=== PATIENT | female | born 1950 | race Caucasian/White ===

== ENCOUNTER 2018-06-04 14:57 | Emergency (ER) | payer OTHER ==
[~2018-06-04] VITALS: Ht 157.5 cm; Wt 82.6 kg
--- NOTE | 2018-06-04 16:11 | ED GI/GU/ABDOMINAL COMPLAINT ---
See Addendum History of Present Illness General Chief Complaint: General Adult Stated Complaint: BIBA N/V Source: patient Exam Limitations: no limitations Vital Signs & Intake/Output Vital Signs & Intake/Output Vital Signs Date Time Temp Pulse Resp B/P B/P Pulse O2 O2 Flow FiO2 Mean Ox Delivery Rate 06/04 1504 97 Room Air 06/04 1501 98.2 66 18 150/66 95 Room Air 06/04 1501 64 16 150/77 94 Room Air Allergies Coded Allergies: Iodinated Contrast- Oral and IV Dye (Severe, "MY EYES GET PINK" 06/04/18) Sulfa (Sulfonamide Antibiotics) (Severe, N/A 06/04/18) metformin (Severe, N/V 06/04/18) Triage Note: 68 Y/O FEMALE BIBA FROM HOME FOR EVAL OF N/V/D X 2 WEEKS. PER EMS AND PT REPORT, PT WAS RECENTLY ADMITTED TO [facility] FOR SAME AND D/ELDER OVER THE WEEKEND. PT STATES "I ATE THREE MEALS THERE BUT THEN WENT HOME AND HAVE BEEN SICK SINCE". PT C/O DIFFUSE ABDOMINAL PAIN, "WHERE MY HERNIA IS" (HIATAL HERNIA) AND LOWER BACK PAIN (HX SPINAL STENOSIS). DENIES URINARY SYMPTOMS. DENIES FEVERS. AWAITING EVAL. Triage Nurses Notes Reviewed? yes ? N Is pt currently ? No HPI: 68 year old female with history of asthma, diabetes mellitus, hiatal hernia, umbilical hernia, and resting tremor presenting with 2 weeks of intermittent vomiting/dry heaving and loss of appetite. She has been experiencing vomiting nearly every day, and this morning she was dry heaving upon waking up and vomited up her pills when she took them later in the morning. Last bowel movement was 2 days ago, she denies blood in her vomit, denies bilious content in her vomit, reports that is either vomiting up "normal food" or dry heaving. Vomiting does not improve her nausea, the symptoms have been more or less persistent for the last 2 weeks. Past History Travel History Traveled to [place] past 21 day No Medical History Any Pertinent Medical History? 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 No Review of Systems Review of Systems Constitutional: Reports: malaise. Denies: chills, diaphoresis, fever. Respiratory: Denies: cough, hemoptysis, short of breath. Cardiovascular: Denies: chest pain, palpitations, peripheral edema. GI: Reports: nausea, vomiting. Denies: abdominal pain. Physical Exam Physical Exam General Appearance: well developed/nourished, no apparent distress, alert, awake Head: atraumatic, normal appearance Respiratory: normal breath sounds, chest non-tender, no respiratory distress, lungs clear Cardiovascular: regular rate/rhythm Gastrointestinal: normal bowel sounds, soft, tenderness (RUQ & RLQ), mass ( Umbilical hernia) Core Measures ACS in differential dx? No Sepsis Present: No Sepsis Focused Exam Completed? No Progress Differential Diagnosis: gastritis, hernia, SBO Plan of Care: Orders Procedure Date/time Status TROPONIN LEVEL 06/04 1530 Complete LIPASE 06/04 1530 Complete COMPREHENSIVE METABOLIC PANEL 06/04 1530 Complete AMYLASE 06/04 1530 Complete EKG 06/04 1530 Active Laboratory Tests 06/04/18 1536: Anion Gap 11, Estimated GFR 28 L, BUN/Creatinine Ratio 13.3, Glucose 209 H, Calcium 9.5, Total Bilirubin 0.7, AST 18, ALT 27, Alkaline Phosphatase 131 H, Troponin I < 0.01, Total Protein 7.2, Albumin 4.0, Globulin 3.2, Albumin/ Globulin Ratio 1.3, Amylase 42, Lipase 16 L Initial ED EKG: normal axis, normal intervals, normal sinus rhythm Departure Departure Disposition: HOME OR SELF CARE Condition: Stable Clinical Impression Primary Impression: Vomiting Qualifiers: Vomiting type: unspecified Vomiting Intractability: non-intractable Nausea presence: with nausea Qualified Code: R11.2 - Nausea with vomiting, unspecified Departure Forms: Customer Survey General Discharge Information Prescriptions: Current Visit Scripts Ondansetron (Zofran Odt) 1 TAB SL TID #10 TAB
[2018-06-04] MEDS ORDERED: ZOFRAN ODT4 M1 SL (18:14)
[2018-06-04 20:21] VITALS: BP 148/62
== END 2018-06-04 19:39 ==
LOC: ERH 14:57
DX: R11.2 Nausea with vomiting, unspecified (principal)
CPT/HCPCS: 93005; 93010; J2405